=== PATIENT | female | born 1980 | race Caucasian/White ===

== ENCOUNTER 2018-05-01 08:14 | Emergency (ER) | payer OTHER ==
[~2018-05-01] VITALS: Ht 175.3 cm; Wt 70.3 kg
--- NOTE | 2018-05-01 08:26 | ED GENERAL ADULT ---
History of Present Illness General Chief Complaint: Abdominal Pain/Flank Pain Stated Complaint: ABDOMINAL PAIN Source: patient Exam Limitations: no limitations Vital Signs & Intake/Output Vital Signs & Intake/Output Vital Signs Date Time Temp Pulse Resp B/P B/P Pulse O2 O2 Flow FiO2 Mean Ox Delivery Rate 05/01 1337 98.1 54 18 106/58 100 Room Air 05/01 1029 97.8 52 18 108/66 100 Room Air 05/01 0846 98 Room Air 05/01 0818 97.5 83 24 124/76 95 Room Air Room Air Allergies Coded Allergies: NO KNOWN ALLERGIES (05/01/18) Reconcile Medications Turmeric Root Extract (Turmeric) (Unknown Strength) CAPSULE (Unknown Dose) PO DAILY SUPPLEMENT (Reported) Triage Note: PT TO ED WITH C/O UPPER ABD PAIN SINCE YESTERDAY, PT STATING "I HAD THIS PAIN BEFORE BUT IT WENT AWAY AFTER A COUPLE OF HOURS". LAST MENSES: 04/12/18. PT DENIES N/V/D Triage Nurses Notes Reviewed? yes Onset: Gradual Duration: day(s): Timing: recent history : No Patient currently breastfeeds: No HPI: 05/01/18 37-year-old female presents to the emergency Department severe epigastric and bilateral flank pain that started abruptly. She said the pain started this a.m. She said she had a similar episode several days ago that revolved. She is in 10 out of 10 pain currently. Abdomen is soft and reveals epigastric tenderness. No fever, no vaginal discharge, no dysuria. No lower abdominal tenderness. Past History Travel History Traveled to [place] past 21 day No Medical History Any Pertinent Medical History? see below for history Neurological: NONE EENT: NONE Cardiovascular: NONE Respiratory: NONE Gastrointestinal: NONE Hepatic: NONE Renal: NONE Musculoskeletal: NONE Psychiatric: NONE Endocrine: NONE Blood Disorders: NONE Cancer(s): NONE [employer]ICER/Reproductive: ovarian cysts Surgical History Surgical History: surgery for ovarian cyst Psychosocial History What is your primary language Ghanaian Tobacco Use: Never used ETOH Use: denies use Illicit Drug Use: denies illicit drug use Family History Hx Contributory? No Review of Systems Review of Systems Constitutional: Denies: fever. EENTM: Denies: visual changes. Respiratory: Denies: short of breath. Cardiovascular: Denies: chest pain. GI: Reports: abdominal pain. Denies: vomiting. Genitourinary: Reports: no symptoms. Musculoskeletal: Reports: no symptoms. Skin: Reports: no symptoms. Neurological/Psychological: Reports: no symptoms. Hematologic/Endocrine: Reports: no symptoms. Immunologic/Allergic: Reports: no symptoms. Physical Exam Physical Exam General Appearance: well developed/nourished, alert, awake, anxious Head: atraumatic, normal appearance Eyes: Bilateral: normal appearance, PERRL, EOMI. Ears, Nose, Throat: normal pharynx, normal ENT inspection, hearing grossly normal Neck: normal inspection, supple, full range of motion Respiratory: normal breath sounds, chest non-tender, no respiratory distress Cardiovascular: regular rate/rhythm Peripheral Pulses: 4+ radial (R), 4+ radial (L) Gastrointestinal: normal bowel sounds (epigastric), soft, tenderness Back: normal inspection, normal range of motion, vertebral tenderness Extremities: normal inspection, normal capillary refill, normal range of motion Neurologic/Psych: no motor/sensory deficits, awake, alert, oriented x 3 Skin: intact, normal color, warm/dry Core Measures ACS in differential dx? No CVA/TIA Diagnosis: No Sepsis Present: No Sepsis Focused Exam Completed? No Progress Differential Diagnoses I considered the following diagnoses in my evaluation of the patient: [kidney stones, pancreatitis, PUD, TUBAL , OVARIAN CYSTS,APPENDICITIS] Plan of Care: Orders Procedure Date/time Status Heart Healthy Diet 05/01 L Active Lab Add-on Test 05/01 1625 Active Add-on Test (ER Only) 05/01 1007 Active LIPASE 05/01 0904 Complete HUMAN BETA HCG SCREEN 05/01 0904 Complete Vital Signs 05/01 0832 Complete CULTURE,URINE 05/01 0830 Active URINE 05/01 0830 Complete URINE DRUG SCREEN FOR ER ONLY 05/01 0830 Complete URINALYSIS 05/01 0830 Complete COMPREHENSIVE METABOLIC PANEL 05/01 0830 Complete CBC WITHOUT DIFFERENTIAL 05/01 0830 Complete TYPE & SCREEN (NOT X-MATCH) 05/01 0830 Complete Laboratory Tests 05/01/18 1010: Urine Opiates Screen 251, Methadone Screen < 40, Barbiturate Screen < 60, Ur Phencyclidine Scrn < 6.00, Amphetamines Screen < 100, U Benzodiazepines Scrn < 85, Urine Cocaine Screen < 50, Urine Cannabis Screen < 5.00, Urine Color YEL, Urine Clarity CLEAR, Urine pH 8.0, Ur Specific [place] 1.015, Urine Protein NEG, Urine Ketones NEG, Urine Nitrite NEG, Urine Bilirubin NEG, Urine Urobilinogen 0.2, Ur Leukocyte Esterase SMALL H, Ur Microscopic SEDIMENT EXAMINED, Urine WBC 1-3 H, Ur Epithelial Cells FEW, Urine Bacteria FEW H, Urine Hemoglobin NEG, Urine Glucose NEG, Urine Test NEGATIVE 05/01/18 0904: Anion Gap 9, Estimated GFR > 60, BUN/Creatinine Ratio 10.0, Glucose 92, Calcium 9.8, Total Bilirubin 1.0, AST 20, ALT 24, Alkaline Phosphatase 45, Total Protein 6.8, Albumin 4.2, Globulin 2.6, Albumin/Globulin Ratio 1.6, Lipase 19 L, Total Beta HCG NEGATIVE, CBC w Diff NO MAN DIFF REQ, RBC 4.15 L, MCV 92.7, MCH 32.1 H, MCHC 34.6, RDW 12.8, MPV 9.1, Gran % 59.3, Lymphocytes % 30.5, Monocytes % 8.2, Eosinophils % 1.4, Basophils % 0.6, Absolute Granulocytes 3.5, Absolute Lymphocytes 1.8, Absolute Monocytes 0.5, Absolute Eosinophils 0.1, Absolute Basophils 0 Microbiology 05/01 1010 URINE ROUT: Urine Culture - RECD Initial ED EKG: none Departure Departure Disposition: STILL A PATIENT Condition: Stable Clinical Impression Primary Impression: Abdominal pain Secondary Impressions: Ovarian cyst Referrals: Merle CERVANTES,Mimi (PCP/Family) Departure Forms: Customer Survey General Discharge Information Comments 05/01/18 1:41 PM The patient has no abdominal pain at this time. Her pain was in the epigastric region. It is never been in her lower quadrants. She has a history of ovarian cysts always on the right. She says that her pain this time was different. She says she's been under a lot of stress and has not eaten. This is the second time she's had an episode of this type of pain and it's always when she doesn't eat. She was put on Prevacid and will follow up with GI this week. She will also follow up with her [employer] physician. A copy of her CAT scan was given to follow up the ovarian cyst I reviewed the results of the CT personally with the radiologist. No evidence of torsion. PATIENT: ABHI POLANCO PRESENT AGE: 37 PATIENT ACCOUNT NO: [id number] : 82 LOCATION: [facility] ORDERING PHYSICIAN: Vern Tapia DO SERVICE DATE: 05/01/18- EXAM TYPE: CAT - CT ABD & PELVIS W IV CONTRAST EXAMINATION: CT ABD PELVIS W IV CONTRAST CLINICAL INFORMATION: Abdominal pain COMPARISON: None TECHNIQUE: Multidetector volumetric imaging was performed from the superior aspect of the liver through the pubic symphysis 95 mL Optiray 320 injected Sagittal and coronal reformatted images were obtained on the technologist's workstation. DLP: 267 mGy-cm FINDINGS: LOWER THORAX: Included lung bases are clear. HEPATOBILIARY: No focal hepatic lesions. No biliary ductal dilatation. GALLBLADDER: Gallbladder unremarkable. SPLEEN: Spleen is normal in size. PANCREAS: No focal mass or ductal dilatation. STOMACH AND GASTROINTESTINAL TRACT: Stomach is grossly unremarkable. There is no bowel distention or thickening. No CT evidence of appendicitis. ADRENALS: No adrenal nodules. KIDNEYS/URETERS: No hydronephrosis, stones or solid mass lesions. URINARY BLADDER: Partially decompressed. PELVIC VISCERA: The uterus is bulky normal for patient's young age, there is a fluid-filled cystic mass in the RIGHT side of the pelvis most likely of RIGHT ovarian origin 2.1 cm. This would be better characterized with pelvic ultrasound. PERITONEUM: No free air or fluid. LYMPH NODES: No lymphadenopathy. VASCULAR:Abdominal aorta normal in size, no aneurysm found. BONES, ABDOMINAL WALL AND SOFT TISSUES: Age-appropriate changes of the spine and skeletal system, no destructive osteolytic or osteosclerotic bone lesion found IMPRESSION: 1. No CT evidence of appendicitis, normal-size appendix identified in the RIGHT lower quadrant filled with air. 2. There is a fluid-filled cystic structure in the RIGHT side of the pelvis most likely of RIGHT ovarian origin, this can be better characterized with pelvic ultrasound. Exam otherwise normal. DICTATED BY: Ed Guzman MD DATE/TIME DICTATED:05/01/181315 JEWELRY MODEL MAKER:MIGUEL DATE/TIME TRANSCRIBED:05/01/181315 CONFIDENTIAL, DO NOT COPY WITHOUT APPROPRIATE AUTHORIZATION. <Electronically signed in Other Vendor System> SIGNED BY: Ed Guzman MD [id number] Critical Care Note Critical Care Note Critical Care Time: non-applicable
[2018-05-01] MEDS ORDERED: TURMERIC500 M2 PO (09:09)
[2018-05-01 09:14] LABS: ABSOLUTE BASOPHIL COUNT 0 /CUMM (0.0-0.2); ABSOLUTE EOSINOPHIL COUNT 0.1 /CUMM (0.0-0.7); ABSOLUTE GRANULOCYTE CT 3.5 /CUMM (1.4-6.5); ABSOLUTE LYMPH COUNT 1.8 /CUMM (1.2-3.4); ABSOLUTE MONOCYTE COUNT 0.5 /CUMM (0.10-0.60); BASOPHIL % 0.6 % (0.0-2.0); EOSINOPHIL % 1.4 % (0-5); GRANULOCYTE % 59.3 % (42.2-75.2); HEMATOCRIT 38.5 % (37-47); MEAN CORPUSCULAR HGB 32.1 PG (27.0-31.0); MEAN CORPUSCULAR HGB CONC 34.6 G/DL (33.0-37.0); MEAN CORPUSCULAR VOLUME 92.7 FL (81.0-99.0); MEAN PLATELET VOLUME 9.1 FL (7.4-10.4); PLATELET COUNT 188 /CUMM (130-400); RBC DISTRIBUTION WIDTH 12.8 % (11.5-14.5); RED BLOOD CELL CT 4.15 /CUMM (4.20-5.40); WHITE BLOOD CELL COUNT 5.9 /CUMM (4.8-10.8)
--- NOTE | 2018-05-01 13:23 | CT SCAN REPORT ---
EXAMINATION: CT ABD PELVIS W IV CONTRAST CLINICAL INFORMATION: Abdominal pain COMPARISON: None TECHNIQUE: Multidetector volumetric imaging was performed from the superior aspect of the liver through the pubic symphysis 95 mL Optiray 320 injected Sagittal and coronal reformatted images were obtained on the technologist's workstation. DLP: 267 mGy-cm FINDINGS: LOWER THORAX: Included lung bases are clear. HEPATOBILIARY: No focal hepatic lesions. No biliary ductal dilatation. GALLBLADDER: Gallbladder unremarkable. SPLEEN: Spleen is normal in size. PANCREAS: No focal mass or ductal dilatation. STOMACH AND GASTROINTESTINAL TRACT: Stomach is grossly unremarkable. There is no bowel distention or thickening. No CT evidence of appendicitis. ADRENALS: No adrenal nodules. KIDNEYS/URETERS: No hydronephrosis, stones or solid mass lesions. URINARY BLADDER: Partially decompressed. PELVIC VISCERA: The uterus is bulky normal for patient's young age, there is a fluid-filled cystic mass in the RIGHT side of the pelvis most likely of RIGHT ovarian origin 2.1 cm. This would be better characterized with pelvic ultrasound. PERITONEUM: No free air or fluid. LYMPH NODES: No lymphadenopathy. VASCULAR:Abdominal aorta normal in size, no aneurysm found. BONES, ABDOMINAL WALL AND SOFT TISSUES: Age-appropriate changes of the spine and skeletal system, no destructive osteolytic or osteosclerotic bone lesion found IMPRESSION: 1. No CT evidence of appendicitis, normal-size appendix identified in the RIGHT lower quadrant filled with air. 2. There is a fluid-filled cystic structure in the RIGHT side of the pelvis most likely of RIGHT ovarian origin, this can be better characterized with pelvic ultrasound. Exam otherwise normal.
[2018-05-01 13:37] VITALS: BP 106/58
== END 2018-05-01 13:58 ==
LOC: ERH 08:14
PROVIDERS: Emergency Medicine
DX: N83.201 Unspecified ovarian cyst, right side (principal); R10.13 Epigastric pain
CPT/HCPCS: 74177; 80307; 81001; 81025; 87071; 87086; 96374; 96375; J2405